=== PATIENT | male | born 1995 | race Caucasian/White ===

== ENCOUNTER 2020-09-21 15:14 | Emergency (ER) | payer MEDICAID ==
[~2020-09-21] VITALS: Ht 180.3 cm; Wt 122.7 kg
[2020-09-21] MEDS ORDERED: KETOROLAC TROMETHAMINE 60 MG/2 ML VIAL IM ONE (17:15)
[2020-09-21 18:34] VITALS: BP 133/74
== END 2020-09-21 19:12 | disposition home or self-care (01) ==
LOC: EMS 15:20 → EDSEX 15:20 → EMS 19:12
DX: S93.401A Sprain of unspecified ligament of right ankle, initial encounter (principal); W10.9XXA Fall (on) (from) unspecified stairs and steps, initial encounter; Y93.89 Activity, other specified; Y92.89 Other specified places as the place of occurrence of the external cause; Y99.8 Other external cause status
CPT/HCPCS: 29515; 73590; 73610; 96372; 99284; J1885

== ENCOUNTER 2022-04-06 16:35 | Emergency (ER) | payer SELFPAY ==
[~2022-04-06] VITALS: Ht 182.9 cm; Wt 111.4 kg
[2022-04-06 19:25] VITALS: BP 138/75
== END 2022-04-06 19:26 | disposition home or self-care (01) ==
LOC: EMS 16:35
DX: S83.91XA Sprain of unspecified site of right knee, initial encounter (principal); X50.0XXA Overexertion from strenuous movement or load, initial encounter; Y93.89 Activity, other specified; Y92.89 Other specified places as the place of occurrence of the external cause; Y99.8 Other external cause status
CPT/HCPCS: 99283